=== PATIENT | female | born 1975 | race Caucasian/White ===

== ENCOUNTER 2021-09-03 10:52 | Emergency (ER) | payer OTHER, SELFPAY ==
[2021-09-03 11:50] VITALS: BP 104/69; PULSE 61; RESP 16; TEMP 36.4; O2SAT 100
--- NOTE | 2021-09-03 12:47 | ED.URI ---
HPI - URI/Sore Throat General Chief Complaint: Upper Respiratory Infection Stated Complaint: nausea/cough/congestion Time Seen by Provider: 09/03/21 12:47 Source: patient Mode of arrival: ambulatory Limitations: no limitations History of Present Illness HPI Narrative: trace Walton is a 46 yo female with no PMH who smokes half pack cigarettes a day, observe MsShruti altamirano with complaints of fever headache mild cough some diarrhea feeling fatigue x3 days. She has no known sick contact but states has been feeling poorly is able to drink fluids but not interested in eating Had Covid vaccine Related Data Home Medications Medication Instructions Recorded Confirmed No Home Medications 09/03/21 09/03/21 Allergies Allergy/AdvReac Type Severity Reaction Status Date / Time acetaminophen [From Percocet] Allergy Anaphylaxis Verified 09/03/21 13:52 morphine Allergy Anaphylaxis Verified 09/03/21 13:52 oxycodone [From Percocet] Allergy Anaphylaxis Verified 09/03/21 13:52 Review of Systems Review of Systems: CONSTITUTIONAL: Subjective fever, chills, sweats. EYES: Denies visual changes, redness, discharge. ENT: Denies rhinorrhea, has congestion, has sore throat, otalgia. Headache CARDIOVASCULAR: Denies chest pain, palpitations, edema. RESPIRATORY: Denies dyspnea, wheezing, mild cough GASTROINTESTINAL: Denies abdominal pain, nausea, vomiting, diarrhea. GENITOURINARY: Denies dysuria, hematuria, abnormal discharge SKIN: Denies rash or itching. NEUROLOGIC: Denies numbness, or focal weakness. PSYCHIATRIC: Denies anxiety or depression. PMFSH Past Medical History Medical History No acute medical problems Family History Family History (Updated 09/03/21 @ 12:57 by Sofía Saha CNP) Father Cirrhosis of liver Other Breast cancer Heart disease Social History Social History (Updated 09/03/21 @ 12:57 by Sofía Saha CNP) Smoking packs per day: 0.5 Smoking cigarettes per day: 10.0 Smoking status: Current every day smoker Alcohol intake: current Comments At time of signature, I agree with nursing past medical, surgical, social and family history. There is no relevant family history pertinent to the presenting complaint. Exam Narrative: GENERAL: This is a well-nourished, well-developed patient, in mild distress. HEAD: normocephalic, atraumatic. EYES: Sclera clear/white. Vision is grossly intact. EARS: External ears normal, auditory canals clear and without drainage, TMs normal without perforation. Hearing grossly intact. NOSE: External nose normal without nasal discharge, nares without redness, THROAT: Mucous membranes moist, posterior pharynx mild erythema NECK: Neck supple, CARDIOVASCULAR: Regular rate and rhythm without murmurs, gallops, or rubs. RESPIRATORY: Clear to auscultation. Breath sounds equal bilaterally. No wheezes, rales, or rhonchi. GASTROINTESTINAL: Abdomen soft, SKIN: warm, intact with no suspicious lesions or rash, good texture and turgor. NEURO: awake, alert, and oriented to person, place and time. There were no obvious focal neurologic abnormalities. Steady gait EXTREMITIES: Normal range of motion. BACK: Nontender without deformity Course Course Emergency Course: Patient comes with diarrhea symptoms for the last 3 days including headache body aches some diarrhea cough Covid PCR sent Flu swab done- negative Given instructions to quarantine until Covid results are received Level of Care: Express Care Visit Vital Signs Vital signs: Vital Signs Temperature 97.6 F 09/03/21 11:50 Pulse Rate 61 09/03/21 11:50 Respiratory Rate 16 09/03/21 11:50 Blood Pressure 104/69 09/03/21 11:50 Pulse Oximetry 100 09/03/21 11:50 Temperature 97.6 F 09/03/21 11:50 Pulse Rate 61 09/03/21 11:50 Respiratory Rate 16 09/03/21 11:50 Blood Pressure 104/69 09/03/21 11:50 Pulse Oximetry 100 09/03/21 11:50
[2021-09-04 14:35] LABS: SARS-CoV-2 RNA PCR Negative
== END 2021-09-03 13:29 | disposition home or self-care (01) ==
PROVIDERS: Emergency Provider Nurse Practitioner
DX: J06.9 Acute upper respiratory infection, unspecified (principal); Z20.822 Contact with and (suspected) exposure to COVID-19; F17.210 Nicotine dependence, cigarettes, uncomplicated
CPT/HCPCS: 87804; 99203; C9803; G0463; U0003; U0005

== ENCOUNTER 2023-08-03 17:22 | Emergency (ER) | payer SELFPAY ==
[2023-08-03 17:30] VITALS: BP 109/81; PULSE 70; RESP 16; TEMP 36.9; O2SAT 100
[2023-08-03 17:31] VITALS: BP 109/81; PULSE 70; RESP 16; TEMP 36.9; O2SAT 100
--- NOTE | 2023-08-03 17:33 | ED.GENADULT ---
HPI - General Adult General Chief complaint: Neck Pain/Injury Stated complaint: Swollen Neck Time Seen by Provider: 08/03/23 17:41 Mode of arrival: ambulatory Limitations: no limitations History of Present Illness HPI narrative: 48-year-old female presents with concern for a swollen lymph node. Reports she noticed it today with her hand happened to brush passed it. She denies any sore throat, trouble swallowing, ear pain, dental pain. She denies any malaise, fever, aches, chills, sweats. She denies any redness or warmth. MD complaint: Swollen lymph node Related Data Home Medications Medication Instructions Recorded Confirmed No Home Medications 09/03/21 08/03/23 Allergies Allergy/AdvReac Type Severity Reaction Status Date / Time acetaminophen [From Percocet] Allergy Anaphylaxis Verified 08/03/23 17:31 morphine Allergy Anaphylaxis Verified 08/03/23 17:31 oxycodone [From Percocet] Allergy Anaphylaxis Verified 08/03/23 17:31 Review of Systems Review of Systems: CONSTITUTIONAL: Denies malaise, chills, sweats, or fever. EYES: Denies visual changes ENT: Denies rhinorrhea, congestion, sinus pain, otalgia or sore throat. Reports left neck swollen lymph nodes CARDIOVASCULAR: Denies chest pain, palpitations, or edema. RESPIRATORY: Denies cough or dyspnea. SKIN: Denies rash or itching, redness, warmth MUSCULOSKELETAL: Denies back pain, joint pain, or myalgia. NEUROLOGIC: Denies numbness, weakness, or headache. PSYCHIATRIC: Denies anxiety or depression. All systems reviewed & are unremarkable except as noted in HPI and below PMFSH Past Medical History Medical History No acute medical problems Family History Family History (Updated 09/03/21 @ 12:57 by Sofía Saha, TEACHER ASST) Father Cirrhosis of liver Other Breast cancer Heart disease Social History Social History (Updated 09/03/21 @ 12:57 by Sofía Saha, EULALIO) Smoking packs per day: 0.5 Smoking cigarettes per day: 10.0 Smoking status: Current every day smoker Alcohol intake: current Comments At time of signature, agree with nursing past medical, surgical, social and family history. There is no relevant family history pertinent to the presenting complaint Exam Narrative: GENERAL: Well-appearing, well-nourished, and in no acute distress. HEAD: Normocephalic, atraumatic. EYES: PERRLA, sclera clear, and EOMI. No nystagmus. ENT: Nares clear, turbinates pink, no rhinorrhea or epistaxis. Mucous membranes moist. TM pearly adan with sharp light reflex bilaterally; no tragal tenderness. Oropharynx without erythema or lesions. Tonsils not enlarged and without exudate. NECK: Supple. Left cervical lymphadenopathy. Thyromegaly noted. Carotids easily palpable CHEST: No respiratory distress. Clear to auscultation. No bony deformities, no asymmetry. Speaks in full sentences. HEART: Regular rate and rhythm. SKIN: Warm, dry, no visible rash. NEURO: Alert and oriented x3. PSYCH: Normal mood and affect Course Course Emergency Course: Patient is aware of diagnosis, understands and agrees to treatment plan. Anticipatory guidance given. Patient agrees to follow-up as directed and is aware of reasons to seek care at the emergency department. Portions of this record may have been created with voice recognition software Level of Care: Express Care Visit Vital Signs Vital signs: Vital Signs Temperature 98.5 F 08/03/23 17:30 Pulse Rate 70 08/03/23 17:30 Respiratory Rate 16 08/03/23 17:30 Blood Pressure 109/81 08/03/23 17:30 Pulse Oximetry 100 08/03/23 17:30 Oxygen Delivery Room Air 08/03/23 17:30 Temperature 98.5 F 08/03/23 17:31 Pulse Rate 70 08/03/23 17:31 Respiratory Rate 16 08/03/23 17:31 Blood Pressure 109/81 08/03/23 17:31 Pulse Oximetry 100 08/03/23 17:31 Oxygen Delivery Room Air 08/03/23 17:31 Reviewed. Medical Decision Making
== END 2023-08-03 17:54 | disposition home or self-care (01) ==
PROVIDERS: Emergency Provider Nurse Practitioner
DX: E04.9 Nontoxic goiter, unspecified (principal); R59.0 Localized enlarged lymph nodes; F17.210 Nicotine dependence, cigarettes, uncomplicated
CPT/HCPCS: 99212; G0463

== ENCOUNTER 2024-06-16 13:28 | Emergency (ER) | payer SELFPAY ==
[2024-06-16 13:43] VITALS: BP 106/79; PULSE 82; RESP 16; TEMP 36.8; O2SAT 99
--- NOTE | 2024-06-16 14:32 | ED.ABDPAIN ---
HPI - Abdominal Pain General Chief Complaint: Abdominal Pain Stated Complaint: dry heaves work note Time Seen by Provider: 06/16/24 14:32 Source: patient and RN notes reviewed Mode of arrival: ambulatory Limitations: no limitations History of Present Illness HPI narrative: 49-year-old female presents for work note. Reports she has chronic abdominal pain because of her hernia which she is having repaired in 1 week. 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 She reports she needs a note to return to work. She denies any current pain, nausea, vomiting. Denies fever. Related Data Allergies Allergy/AdvReac Type Severity Reaction Status Date / Time acetaminophen [From Percocet] Allergy Anaphylaxis Verified 06/16/24 13:55 morphine Allergy Anaphylaxis Verified 06/16/24 13:55 oxycodone [From Percocet] Allergy Anaphylaxis Verified 06/16/24 13:55 Review of Systems Review of Systems: CONSTITUTIONAL: Denies malaise, chills, sweats, or fever. ENT: Denies rhinorrhea, congestion, sinus pain, otalgia or sore throat. CARDIOVASCULAR: Denies chest pain, palpitations, or edema. RESPIRATORY: Denies cough or dyspnea. GASTROINTESTINAL: Denies abdominal pain, nausea, vomiting, diarrhea, bloody, or mucous stools. GENITOURINARY: Denies dysuria or hematuria. MUSCULOSKELETAL: Denies myalgia. NEUROLOGIC: Denies headache. All systems reviewed & are unremarkable except as noted in HPI and below PMFSH Past Medical History Medical History No acute medical problems Family History Family History (Updated 09/03/21 @ 12:57 by Sofía Saha, STEAM FRAME OPERATOR) Father Cirrhosis of liver Other Breast cancer Heart disease Social History Social History (Updated 09/03/21 @ 12:57 by oSfía Saha, STEAM FRAME OPERATOR) Smoking packs per day: 0.5 Smoking cigarettes per day: 10.0 Smoking status: Current every day smoker Alcohol intake: current Comments At time of signature, agree with nursing past medical, surgical, social and family history. There is no relevant family history pertinent to the presenting complaint Exam Narrative: GENERAL: Well-appearing, well-nourished, and in no acute distress. HEAD: Normocephalic, atraumatic. EYES: PERRLA, conjunctivae clear, and EOMI. ENT: Nares clear, turbinates pink, no rhinorrhea or epistaxis. Mucous membranes moist. Oropharynx without edema, erythema, or lesions. Tonsils not enlarged and without exudate. NECK: Supple. No lymphadenopathy CHEST: Speaks in full sentences. No respiratory distress. HEART: Regular rate and rhythm. ABDOMEN: Soft, flat, nondistended, nontender. SKIN: Warm, dry, no rash. NEURO: Alert and oriented x3. PSYCH: Normal mood and affect Course Course Emergency Course: Patient is aware of diagnosis, understands and agrees to treatment plan. Anticipatory guidance given. Patient agrees to follow-up as directed and is aware of reasons to seek care at the emergency department. Portions of this record may have been created with voice recognition software Level of Care: Express Care Visit Vital Signs Vital signs: Vital Signs Temperature 98.2 F 06/16/24 13:43 Pulse Rate 82 06/16/24 13:43 Respiratory Rate 16 06/16/24 13:43 Blood Pressure 106/79 06/16/24 13:43 Pulse Oximetry 99 06/16/24 13:43 Oxygen Delivery Room Air 06/16/24 13:43 Temperature 98.2 F 06/16/24 13:43 Pulse Rate 82 06/16/24 13:43 Respiratory Rate 16 06/16/24 13:43 Blood Pressure 106/79 06/16/24 13:43 Pulse Oximetry 99 06/16/24 13:43 Oxygen Delivery Room Air 06/16/24 13:43 Reviewed. MDM - Abdominal Pain MDM Narrative Medical decision making narrative: I evaluated this patient in the express care. History is obtained from patient who is an independent historian and physical exam was performed.? Available medical records were reviewed. ? Exam findings show no acute c
== END 2024-06-16 14:45 | disposition home or self-care (01) ==
PROVIDERS: Emergency Provider Nurse Practitioner; PCP Family Medicine
DX: R11.0 Nausea (principal); F17.210 Nicotine dependence, cigarettes, uncomplicated
CPT/HCPCS: 99213; G0463